=== PATIENT | male | born 1990 | race African-American/Black ===

== ENCOUNTER 2021-08-15 11:11 | Emergency (ER) | payer OTHER ==
[~2021-08-15] VITALS: Ht 172.7 cm; Wt 61.2 kg
== END 2021-08-15 13:31 | disposition home or self-care (01) ==
LOC: ER 11:11
DX: T59.891A Toxic effect of other specified gases, fumes and vapors, accidental (unintentional), initial encounter (principal); Y92.813 Airplane as the place of occurrence of the external cause